=== PATIENT | female | born 1995 | race Caucasian/White ===

== ENCOUNTER 2018-10-02 01:09 | Emergency (ER) | payer SELFPAY ==
[~2018-10-02] VITALS: Ht 152.4 cm; Wt 59.1 kg
[2018-10-02 01:12] VITALS: Ht 152.4 cm; Wt 59.1 kg
[2018-10-02 02:30] VITALS: BP 118/63
== END 2018-10-02 02:31 | disposition home or self-care (01) ==
LOC: D.ER 01:09
DX: H57.13 Ocular pain, bilateral (principal)

== ENCOUNTER 2018-12-24 16:12 | Inpatient (IN) | payer SELFPAY ==
[~2018-12-24] VITALS: Ht 152.4 cm; Wt 59.1 kg
[2018-12-24 17:04] LABS: BASOPHILS 0.1 % (0-2); EOSINOPHILS 0.4 % (0-7); HEMOGLOBIN 13.6 g/dL (12-16); IMMATURE GRANULOCYTES 0.3 % (0-5); LYMPHOCYTES 10.4 % (15-50); MCH 30.9 pg (26.0-34.0); MCHC 35.8 g/dL (31.0-37.0); MCV 86.4 fL (80.0-100.0); MEAN PLATELET VOLUME 11.3 fL (7.4-10.4); MONOCYTES 6.6 % (2-11); NEUTROPHILS 82.2 % (40-80); RDW 12.8 % (11.5-14.5); WBC 13.7 10x3/uL (4.8-10.8)
[2018-12-24 17:10] LABS: PLATELET COUNT 264 10x3/uL (130-400)
[2018-12-24 17:34] LABS: ALBUMIN 4.3 g/dL (3.4-5.0); ALKALINE PHOSPHATASE 86 U/L (46-116); ALT (SGPT) 30 U/L (10-68); CALC OSMOLALITY 278 mosm/kg (275-300); CALCIUM 10.5 mg/dL (8.5-10.1); CARBON DIOXIDE 26.8 mmol/L (21.0-32.0); CHLORIDE - SERUM 102 mmol/L (98-107); CREATININE - SERUM 0.9 mg/dL (0.6-1.3); GLUCOSE 129 mg/dL (74-106); POTASSIUM - SERUM 3.9 mmol/L (3.5-5.1); PROTEIN - SERUM 8.3 g/dL (6.4-8.2); SODIUM 139 mmol/L (136-145); UREA NITROGEN 10 mg/dL (7-18); eGFR NON AFRICAN AMERICAN 81 mL/min (90-120)
[2018-12-24 17:37] LABS: AMYLASE - SERUM 30 U/L (25-115); LIPASE 104 U/L (73-393); TROPONIN-I < 0.017 ng/mL (0.000-0.060)
[2018-12-24 19:22] VITALS: BP 123/88
[2018-12-24 19:30] LABS: APPEARANCE HAZY (CLEAR); BILIRUBIN NEGATIVE (NEGATIVE); COLOR YELLOW (YELLOW); GLUCOSE NEGATIVE (NEGATIVE); KETONE NEGATIVE (NEGATIVE); NITRITE NEGATIVE (NEGATIVE); PROTEIN NEGATIVE (NEGATIVE); SPECIFIC GRAVITY 1.005 (1.005-1.020); UROBILINOGEN NORMAL (NORMAL)
[2018-12-24 19:31] LABS: EPITHELIAL CELLS 0-5 /hpf (0-5); RED CELLS - URINE OCC /hpf (0-5); WHITE CELLS - URINE 0-5 /hpf (NEGATIVE)
[2018-12-24 19:32] LABS: BACTERIA FEW /hpf (NEGATIVE)
[2018-12-24 19:33] LABS: HCG URINE NEGATIVE (NEGATIVE)
[2018-12-25] VITALS (8 sets, daily range): BP systolic 102–124; BP diastolic 49–72; Ht 152.4 cm; Wt 59.1 kg
--- NOTE | 2018-12-25 00:30 | NUR ---
ADMITTED TO ROOM FROM ER, DROWSEY FROM MORPHINE GIVEN IN ER, MOTHER AT BEDSIDE, DENIES PAIN AT THIS TIME, ORIENTIATED TO ROOM, CALL LIGHT IN REACH, SEE ASSESSMENT
[2018-12-25 05:50] LABS: BASOPHILS 0.1 % (0-2); EOSINOPHILS 0.7 % (0-7); HEMATOCRIT 35.4 % (36.0-48.0); HEMOGLOBIN 12.3 g/dL (12-16); IMMATURE GRANULOCYTES 0.2 % (0-5); LYMPHOCYTES 20.5 % (15-50); MCH 30.4 pg (26.0-34.0); MCHC 34.7 g/dL (31.0-37.0); MCV 87.4 fL (80.0-100.0); MEAN PLATELET VOLUME 11.4 fL (7.4-10.4); MONOCYTES 9.1 % (2-11); NEUTROPHILS 69.4 % (40-80); RBC 4.05 10x6/uL (4.00-5.40); WBC 10.5 10x3/uL (4.8-10.8)
[2018-12-25 06:04] LABS: PLATELET COUNT 189 10x3/uL (130-400)
[2018-12-25 06:17] LABS: CALC OSMOLALITY 280 mosm/kg (275-300); CALCIUM 8.3 mg/dL (8.5-10.1); CHLORIDE - SERUM 109 mmol/L (98-107); CREATININE - SERUM 0.7 mg/dL (0.6-1.3); GLUCOSE 102 mg/dL (74-106); MAGNESIUM - SERUM 1.6 mg/dL (1.8-2.4); PHOSPHOROUS 4.1 mg/dL (2.5-4.9); POTASSIUM - SERUM 3.5 mmol/L (3.5-5.1); SODIUM 142 mmol/L (136-145); UREA NITROGEN 8 mg/dL (7-18); eGFR NON AFRICAN AMERICAN > 90 mL/min (90-120)
--- NOTE | 2018-12-25 07:32 | NUR ---
PT RESTING IN BED WITH EYES OPEN, MOM AT THE BEDSIDE. ALERT AND ORIENTED WITH NO S/S OF DISTRESS. PT DENIES NEEDS AT THIS TIME WILL CONT TO MONITOR. BED LOW, RAILS UP X 2, CALL LIGHT IN REACH.
--- NOTE | 2018-12-25 20:00 | NUR ---
ALERT AND ORIENTIATED RESTING IN BED DENIES PAIN OR DISTRESS, SEE SHIFT ASSESSMENT, CALL LIGHT IN REACH, REMINDED TO BE NPO AFTER MN
[2018-12-26] VITALS (14 sets, daily range): BP systolic 101–134; BP diastolic 44–76
--- NOTE | 2018-12-26 00:30 | NUR ---
ZOFRAN GIVEN FOR C/O NAUSEA
--- NOTE | 2018-12-26 01:30 | NUR ---
REPORTS VOMITED AND DIARRHEA AFTER ZOFRAN, C/O HEADACHE REQUESTING TYLENOL STATES STOMACH FEELS BETTER RIGHT NOW, TYLENOL GIVEN ORDERED WITH SIPS OF WATER
[2018-12-26 06:03] LABS: BASOPHILS 0.1 % (0-2); EOSINOPHILS 0.2 % (0-7); HEMATOCRIT 36.7 % (36.0-48.0); HEMOGLOBIN 12.5 g/dL (12-16); IMMATURE GRANULOCYTES 0.2 % (0-5); LYMPHOCYTES 9.8 % (15-50); MCH 30.1 pg (26.0-34.0); MCHC 34.1 g/dL (31.0-37.0); MCV 88.4 fL (80.0-100.0); MONOCYTES 5.1 % (2-11); NEUTROPHILS 84.6 % (40-80); PLATELET COUNT 193 10x3/uL (130-400); RBC 4.15 10x6/uL (4.00-5.40); RDW 13.1 % (11.5-14.5); WBC 12.4 10x3/uL (4.8-10.8)
[2018-12-26 06:20] LABS: CALC OSMOLALITY 276 mosm/kg (275-300); CALCIUM 8.8 mg/dL (8.5-10.1); CARBON DIOXIDE 23.8 mmol/L (21.0-32.0); CHLORIDE - SERUM 105 mmol/L (98-107); CREATININE - SERUM 0.7 mg/dL (0.6-1.3); GLUCOSE 111 mg/dL (74-106); MAGNESIUM - SERUM 1.6 mg/dL (1.8-2.4); PHOSPHOROUS 3.1 mg/dL (2.5-4.9); POTASSIUM - SERUM 3.8 mmol/L (3.5-5.1); SODIUM 139 mmol/L (136-145); UREA NITROGEN 6 mg/dL (7-18); eGFR NON AFRICAN AMERICAN > 90 mL/min (90-120)
--- NOTE | 2018-12-26 16:09 | NUR ---
PT LEAVING FOR SURGERY WITH PRE-OP COMPLETE.
--- NOTE | 2018-12-26 19:00 | NUR ---
REPORT RECEIVED AND CARE OF PT ASSUMED. PT IN SURGERY AT THIS TIME.
--- NOTE | 2018-12-26 19:45 | NUR ---
RECEIVED REPORT FROM DAVID WILLIS IN PACU.
--- NOTE | 2018-12-26 19:52 | NUR ---
PT ARRIVED ON UNIT VIA BED. VITALS STABLE WITH O2 IN USE AT 4L.
--- NOTE | 2018-12-26 19:56 | NUR ---
GAVE ZOFRAN FOR NAUSEA...PT VOMITED 100 ML OF BILE. WILL CONTINUE TO MONITOR CLOSELY.
--- NOTE | 2018-12-26 20:00 | NUR ---
GAVE INCENTIVE INSPIROMETER TO PATIENT AND TEACHING ON USE PERFORMED.
--- NOTE | 2018-12-26 20:03 | NUR ---
GAVE MORPHINE 4 MG IVP FOR C/O PAIN AT LEVEL 10/10. WILL MONITOR FOR EFFECTIVENSS.
--- NOTE | 2018-12-26 21:30 | NUR ---
REDUCED O2 TO 3L VIA NC...SPO2 96% AT THIS ASSESSMENT.
--- NOTE | 2018-12-27 | NUR ---
GAVE MORPHINE AND ZOFRAN IVP FOR PAIN AND NAUSEA.
--- NOTE | 2018-12-27 00:07 | NUR ---
ASSISTED PT UP TO RESTROOM....VOIDED 300 ML YELLOW URINE. POSITIONED BACK TO BED FOR COMFORT.
[2018-12-27 00:31] VITALS: BP 110/51
[2018-12-27 04:00] VITALS: BP 102/53
--- NOTE | 2018-12-27 04:11 | NUR ---
GAVE MORPHINE AND ZOFRAN IVP FOR C/O NAUSEA AND PAIN. WILL MONITOR FOR EFFECTIVENESS. PT GETTING UP ON HER OWN TO USE RESTROOM.
--- NOTE | 2018-12-27 04:15 | NUR ---
PT AMBULATED IN THE HALLWAY. BACK IN BED NOW.
[2018-12-27 06:26] LABS: BASOPHILS 0 % (0-2); EOSINOPHILS 0 % (0-7); HEMATOCRIT 33.7 % (36.0-48.0); HEMOGLOBIN 11.4 g/dL (12-16); IMMATURE GRANULOCYTES 0.2 % (0-5); LYMPHOCYTES 4.9 % (15-50); MCH 30.1 pg (26.0-34.0); MCHC 33.8 g/dL (31.0-37.0); MCV 88.9 fL (80.0-100.0); MEAN PLATELET VOLUME 12.5 fL (7.4-10.4); MONOCYTES 4.4 % (2-11); NEUTROPHILS 90.5 % (40-80); PLATELET COUNT 207 10x3/uL (130-400); RBC 3.79 10x6/uL (4.00-5.40); RDW 13.1 % (11.5-14.5); WBC 10.4 10x3/uL (4.8-10.8)
[2018-12-27 06:47] LABS: CALC OSMOLALITY 277 mosm/kg (275-300); CALCIUM 8.6 mg/dL (8.5-10.1); CARBON DIOXIDE 24.4 mmol/L (21.0-32.0); CHLORIDE - SERUM 105 mmol/L (98-107); CREATININE - SERUM 0.7 mg/dL (0.6-1.3); GLUCOSE 126 mg/dL (74-106); MAGNESIUM - SERUM 1.9 mg/dL (1.8-2.4); PHOSPHOROUS 2.8 mg/dL (2.5-4.9); POTASSIUM - SERUM 3.8 mmol/L (3.5-5.1); SODIUM 139 mmol/L (136-145); UREA NITROGEN 7 mg/dL (7-18); eGFR NON AFRICAN AMERICAN > 90 mL/min (90-120)
[2018-12-27 09:14] VITALS: BP 109/58
--- NOTE | 2018-12-27 10:27 | NUR ---
ALERT AND ORIENTED X4 WITH FAMILY PRESENT. LAPROSCOPIC INCISIONS X4 NOTED TO ABDOMEN WITH NO S/S OF INFECTION/ INFILTRATION. BOWEL SOUNDS NOTED X4 BUT DENIES FLATULANCE. ENCOURAGED TO AMBUALTED. TYLENOL GIVEN FOR AABDOMINAL PAIN AND EFFECTIVE. PT STATES HAS VOIDED. UP ADLIB AT THIS TIME AND ENCOURAGED TO USE CALL LIGHT FOR ASSIST.
[2018-12-27] MEDS ORDERED: HYDROCODON-ACE1 EAC7 PO (11:12)
[2018-12-27] MEDS ORDERED: COLACE100 MG PO (11:13)
--- NOTE | 2018-12-27 11:48 | NUR ---
IV DISCONTINUED AND VERBALIZED UNDERSTANTING OF DISCHARGE INSTRUCTIONS. STABLE AT TIME OF DEPARTURE AND LEAVING POV WITH FAMILY AND 3 PERSCRIPTIONS.
--- NOTE | 2018-12-27 17:02 | OP ---
PATIENT NAME: SHREYA MORA MEDICAL RECORD: [id number] :89 LOCATION:[id number] ADMISSION DATE:12/24/18 SURGEON: CLARIBEL TAVAREZ MD DATE OF OPERATION: 12/26/2018 PREOPERATIVE DIAGNOSIS: Acute cholecystitis. POSTOPERATIVE DIAGNOSIS: Acute cholecystitis. PROCEDURE: 1. Laparoscopic cholecystectomy. 2. Intraoperative cholangiography without immediate surgeon interpretation. SURGEON: Claribel Tavarez MD [employer] ACREAGE MEASURER: None. BLOOD LOSS: Minimal. ANESTHESIA: General. COMPLICATIONS: None. The risks, possible complications, and alternatives to the procedure were explained to the patient. She elects to proceed. The discussion specifically included but was not limited to bleeding, requiring emergency reoperation, infection, intestinal injury, or common bile duct injury. OPERATIVE COURSE: The patient was conveyed to the operating room electively on 12/26/2018. General anesthesia was induced by the anesthesia staff. The abdomen was sterilely prepped and draped. An incision was accomplished in the left upper quadrant. A Veress needle was inserted through the incision into the peritoneal cavity. CO2 insufflation was begun. Once a sufficient pneumoperitoneum had been achieved, a 5-mm trocar was inserted through an incision in the right upper quadrant. Under direct internal vision utilizing a television camera, a 12-mm trocar was inserted through an incision at the umbilicus. Another 5-mm trocar was inserted through the incision in the left upper quadrant. Another 5-mm trocar was inserted far laterally in the right upper quadrant. During insertion of the Veress needle and all trocars, there appeared to have been no injury to the bowels, any intraperitoneal or retroperitoneal structures. An abdominal survey was undertaken. The gallbladder was acutely inflamed. There was no indication for a liver biopsy. I advanced a cholangiogram trocar. I punctured the fundus of the gallbladder and I aspirated bile. I then injected dye. Real time cholangiographic images were obtained and these are sent to the radiologist for interpretation. The cholangiogram trocar was removed. The gallbladder was grasped and retracted cephalad. The infundibulum was grasped and retracted laterally. Blunt dissection was begun on the triangle of Calot. One cystic artery and one cystic duct were identified. These were clipped multiply and divided between clips. The gallbladder was then excised from its bed in the liver. It was placed OPERATIVE REPORT [id number] SHREYA MORA within a bag retrieval device and was withdrawn through the umbilical fascia defect. The 12-mm trocar was placed and the abdomen reinsufflated. I irrigated and aspirated the right upper quadrant. There was no bleeding even at low pressure of 8. The Kirk-Lloyd suture closure device and 0 Vicryl sutures were used to close the fascia at the umbilicus. All the trocars were removed and the abdomen desufflated. The trocar sites skin incisions were closed with interrupted intracuticular 3-0 Vicryls except at the umbilicus where the skin was closed with interrupted 3-0 Vicryl Rapide sutures. Benzoin and Steri-Strips were applied. The patient was then extubated and conveyed to the post-anesthesia care unit where she was in stable condition. From my standpoint, she can be dismissed home. I would like to see her in my office in 3 weeks in followup. TRANSINT:[id number] Voice Confirmation ID: [id number] DOCUMENT ID: [id number] CLARIBEL TAVAREZ MD at 1702 CC: SYLVIA GARCIA [id number] DICTATION DATE: 12/26/18 1847 AMMONIA REFRIGERATION TECHNICIAN: 12/27/18 0210 DIS IN 12/27/18 [facility] [address] [place] [address]
== END 2018-12-27 11:50 | disposition home or self-care (01) | DRG 418 ==
LOC: D.ER 16:12 → D.MS 23:45
PROVIDERS: Emergency Medicine; Family Medicine; Surgery; ADMIT Emergency Medicine; ATTEND Emergency Medicine
PROC: 0FT44ZZ Resection of Gallbladder, Percutaneous Endoscopic Approach (ICD-10-PCS; principal; 2018-12-26 13:15)
DX: K80.10 Calculus of gallbladder with chronic cholecystitis without obstruction (principal); N39.0 Urinary tract infection, site not specified; E86.0 Dehydration; K21.9 Gastro-esophageal reflux disease without esophagitis